=== PATIENT | female | born 1990 | race Caucasian/White ===

== ENCOUNTER 2017-05-14 20:30 | Emergency (ER) | payer OTHER ==
[~2017-05-14] VITALS: Ht 165.1 cm; Wt 76.4 kg
[~2017-05-14 20:30] MED LIST: CALAN80 MG PO; CIPROFLOXACIN500 M1 PO; ESCITALOPRAM OX10 MG PO; FLOMAX0.4 MG PO; INDOCIN25 MG PO; LEXAPRO10 MG PO; LORTAB 5-325 M1 EACH PO; MOTRIN600 MG PO; MOTRIN800 MG PO; NAPROSYN500 MG PO; VALIUM5 MG PO; ZOFRAN ODT8 MG PO; ZOFRAN8 MG PO
[2017-05-14] MEDS ORDERED: FLEXERIL10 MG PO (23:45)
[2017-05-14] MEDS ORDERED: MOTRIN600 MG PO (23:45)
[2017-05-14] MEDS ORDERED: NORCO 5/3251 TABLET PO (23:45)
[2017-05-15 00:03] VITALS: BP 105/85
== END 2017-05-15 00:04 | disposition home or self-care (01) ==
LOC: EME → EDBD 20:30 → EME 05-15 00:04
DX: S80.811A Abrasion, right lower leg, initial encounter (principal); T14.8XXA Other injury of unspecified body region, initial encounter; S83.91XA Sprain of unspecified site of right knee, initial encounter; M25.562 Pain in left knee; M54.2 Cervicalgia; R51 Headache; M25.571 Pain in right ankle and joints of right foot; M79.602 Pain in left arm; R20.0 Anesthesia of skin; V49.40XA Driver injured in collision with unspecified motor vehicles in traffic accident, initial encounter; Y92.410 Unspecified street and highway as the place of occurrence of the external cause
CPT/HCPCS: 70450; 72125; 73060; 73090; 73564; 73590; 99281; 99284

== ENCOUNTER 2017-09-16 18:40 | Emergency (ER) | payer OTHER ==
[~2017-09-16] VITALS: Ht 162.6 cm; Wt 74.8 kg
[~2017-09-16 18:40] MED LIST changes: +FLEXERIL10 MG PO; +NORCO 5/3251 TABLET PO
[2017-09-16 18:45] VITALS: BP 108/80
[2017-09-16 19:14] LABS: HEMATOCRIT 41.9 % (36.0-46.0); HEMOGLOBIN 14.1 G/DL (11.9-15.5); MCH 30.7 PG (29.0-34.0); MCHC 33.7 G/DL (30.0-36.0); MCV 91.1 FL (83-99); PLATELET COUNT 325 K/uL (156-360); RBC DIS.WIDTH-CV 11.9 % (11.8-14.6); RBC DIS.WIDTH-SD 39.7 % (39-53); WHITE BLOOD COUNT 10.5 K/uL (4.1-10.2)
[2017-09-16 19:25] LABS: ALBUMIN 4.4 g/dL (3.2-4.8); CHLORIDE 106 mEq/L (99-109); POTASSIUM 4.2 mEq/L (3.7-5.4); SODIUM 138 mEq/L (136-147)
[2017-09-16 19:28] LABS: GLUCOSE 100 mg/dL (70-99); TOTAL PROTEIN 7.7 g/dL (6.4-8.3)
[2017-09-16 19:30] LABS: TOTAL BILIRUBIN 0.4 mg/dL (0.0-1.0)
[2017-09-16 19:31] LABS: ALKALINE PHOSPHATASE 47 IU/L (3-129); GFR ESTIMATE (CALCULATED) > 59 mL/min/
[2017-09-16 19:32] LABS: UREA NITROGEN (BUN) 10 mg/dL (9-23)
[2017-09-16 19:33] LABS: AST (GOT) 15 IU/L (2-34)
[2017-09-16 19:34] LABS: ALT (GPT) 14 IU/L (3-49)
[2017-09-16 19:35] LABS: LIPASE 25 U/L (1.0-51.0)
[2017-09-16 19:41] LABS: QUANTITATIVE HCG < 4.0 MIU/ML
[2017-09-16 20:42] LABS: APPEARANCE CLEAR ((CLEAR)); BILIRUBIN NEGATIVE; BLOOD NEGATIVE; COLOR STRAW ((YELLOW)); GLUCOSE (STRIP) NEGATIVE; KETONES NEGATIVE; LEUKOCYTES NEGATIVE; NITRITE NEGATIVE; PROTEIN (STRIP) NEGATIVE; SPECIFIC GRAVITY 1.045 (1.000-1.030); UCUL ADDED? NO; UROBILINOGEN 0.2 MG/DL (0.2-1.0)
[2017-09-16] MEDS ORDERED: ZOFRAN4 MG PO (20:44)
[2017-09-16] MEDS ORDERED: BENTYL10 MG PO (20:44)
== END 2017-09-16 20:43 | disposition home or self-care (01) ==
LOC: EME 18:40
PROVIDERS: Physician Assistant
DX: K92.2 Gastrointestinal hemorrhage, unspecified (principal); R10.31 Right lower quadrant pain; R11.0 Nausea; Z87.442 Personal history of urinary calculi
CPT/HCPCS: 74177; 80053; 81003; 83690; 84702; 85027; 99281; 99285; J2405; J3010; J7030

== ENCOUNTER → 2017-11-02 | Outpatient (CLI) | payer OTHER ==
[~2017-11-02] VITALS: Ht 164.5 cm; Wt 79.4 kg
[~2017-11-02] MED LIST changes: +BENTYL10 MG PO; +BENTYL20 MG PO; +KLONOPIN0.5 M1 PO; +ZOFRAN4 MG PO
== END | disposition home or self-care (01) ==
LOC: AMB 11:45
PROC: 0DB68ZX Excision of Stomach, Via Natural or Artificial Opening Endoscopic, Diagnostic (ICD-10-PCS; principal; 2017-11-02)
DX: K21.0 Gastro-esophageal reflux disease with esophagitis (principal); K22.10 Ulcer of esophagus without bleeding; Z88.8 Allergy status to other drugs, medicaments and biological substances; Z91.040 Latex allergy status; F41.9 Anxiety disorder, unspecified
CPT/HCPCS: 88305; 88342 TC